=== PATIENT | female | born 1965 | race Caucasian/White ===

== ENCOUNTER 2016-07-04 07:02 | Day surgery (SDC) | payer BC ==
--- NOTE | ~2016-07-04 | EGD ---
EGD REPORT [facility] [address] [address] NAME: JUANCARLOS ACE : [birth year] STATUS : REG [facility]#: [id number] AGE: 51 ADM/REG DATE : 07/04/16 MR#: [id number] REPORT SERV DATE: 07/04/16 DICTATED BY: AMOR ABHENA DATE: 07/04/16 REPORT STATUS : Draft TRANSCRIBED BY: [facility] DATE: 07/04/16 Endoscopy Center Patient Name: Juancarlos Alvarez Date of : 1965 Attending MD: AMOR BAHENA MD Procedure Date No Time: 07/04/2016 Procedure: Upper GI endoscopy Indications: Epigastric abdominal pain, Iron deficiency anemia, Nausea with vomiting Referring MD: PURA SOLANO MD Medicines: as per anesthesia Complications: No immediate complications. Procedure: Pre-Anesthesia Assessment: - ASA Grade Assessment: II - A patient with mild systemic disease. After obtaining informed consent, the endoscope was passed under direct vision. Throughout the procedure, the patient's blood pressure, pulse, and oxygen saturations were monitored continuously. The GIF [id number] was introduced through the mouth, and advanced to the third part of duodenum. The upper GI endoscopy was accomplished without difficulty. The patient tolerated the procedure. Findings: The examined esophagus was normal. The scope was withdrawn. Dilation was performed with a Mckenna dilator with no resistance at 44 Fr. The entire examined stomach was normal. The cardia and gastric fundus were normal on retroflexion. The examined duodenum was normal. Biopsies were taken with a cold forceps for histology. Impression: - Normal esophagus. Dilated. - Normal stomach. - Normal examined duodenum. Biopsied. Recommendation: - Await pathology results. Procedure Code(s): --- Professional --- 34314, Esophagogastroduodenoscopy, flexible, transoral; with biopsy, single or multiple 25173, Dilation of esophagus, by unguided sound or bougie, single or multiple passes Diagnosis Code(s): --- Professional --- EGD REPORT [address] [address] NAME: JUANCARLOS ACE : [birth year] STATUS : REG [facility] PAT#: [id number] AGE: 51 ADM/REG DATE : 07/04/16 MR#: [id number] REPORT SERV DATE: 07/04/16 DICTATED BY: AMOR BAHENA. DATE: 07/04/16 REPORT STATUS : Draft TRANSCRIBED BY: [employer] DATE: 07/04/16 R10.13, Epigastric pain D50.9, Iron deficiency anemia, unspecified R11.2, Nausea with vomiting, unspecified CPT copyright 2013 [employer]. All rights reserved. The codes documented in this report are preliminary and upon credit collector review may be revised to meet current compliance requirements. AMOR BAHENA MD 07/04/2016 9:31 AM This report has been signed electronically. Number of Addenda: 0 Note Initiated On: 07/04/2016 8:55 AM Scope Withdrawal Time 0 hours 0 minutes 0 [address] [place] [id number]
[~2016-07-04 07:02] MED LIST: BENICAR HCT1 TA2 PO; HYDROCHLOROT50 MG PO; LINZESS 290 M290 MCG PO
== END 2016-07-04 23:59 | disposition home or self-care (01) ==
LOC: DMU 07:02
PROVIDERS: Internal Medicine Gastroenterology
PROC: 0D750ZZ Dilation of Esophagus, Open Approach (ICD-10-PCS; principal; 2016-07-04 08:30)
PROC: 0DB98ZX Excision of Duodenum, Via Natural or Artificial Opening Endoscopic, Diagnostic (ICD-10-PCS; 2016-07-04 08:30)
DX: D50.9 Iron deficiency anemia, unspecified (principal); I10 Essential (primary) hypertension; Z90.49 Acquired absence of other specified parts of digestive tract; Z98.51 Tubal ligation status
CPT/HCPCS: 88305